=== PATIENT | male | born 1985 | race African-American/Black ===

== ENCOUNTER 2017-03-18 18:46 | Emergency (ER) | payer OTHER ==
[~2017-03-18] VITALS: Ht 188 cm; Wt 86.2 kg
[2017-03-18 18:50] VITALS: BP 127/90
[2017-03-18] MEDS ORDERED: CYCLOBENZAPRINE HCL 10 MG TAB PO ONE (23:30)
[2017-03-18] MEDS ORDERED: IBUPROFEN 600 MG TAB PO ONE (23:30)
== END 2017-03-19 00:15 | disposition home or self-care (01) ==
LOC: ER 18:52
DX: S13.9XXA Sprain of joints and ligaments of unspecified parts of neck, initial encounter (principal); S39.012A Strain of muscle, fascia and tendon of lower back, initial encounter; J45.909 Unspecified asthma, uncomplicated; V49.49XA Driver injured in collision with other motor vehicles in traffic accident, initial encounter; Y93.89 Activity, other specified; Y99.8 Other external cause status; Y92.410 Unspecified street and highway as the place of occurrence of the external cause